=== PATIENT | male | born 1995 | race Caucasian/White ===

== ENCOUNTER 2023-05-02 18:19 | Emergency (ER) | payer BC, SELFPAY ==
[2023-05-02 18:31] VITALS: BP 191/100
[2023-05-02] MEDS: TYLENOL 1000 MG PO (18:43)
[2023-05-02 18:50] LABS: COVID-19 Antigen Positive (Negative)
--- NOTE | 2023-05-02 21:15 | ED.GENMED ---
History of Present Illness
General
Chief Complaint: Cold/Flu/URI Symptoms
Source: patient
Exam Limitations: none
Time Seen by Provider: 05/02/23 21:08
Travel History
Have you had any contact with someone who has COVID-19?: No
Do you have any symptoms of coronavirus? Fever > 100 degrees, chills, cough, shortness of breath, sore throat, loss of taste or smell, muscle aches, or headache?: Yes
Symptoms:: fever, sore throat.
History of Present Illness
History of Present Illness:
27-year-old male presents with 2 days worth of fatigue cough headache fever sore throat. No known sick contacts. Is healthy otherwise. No other complaints at this
Phy Exam
Physical Exam
Physical Exam:
General: Well-appearing nontoxic male no acute respiratory distress
HEENT: Normocephalic atraumatic neck is supple
Heart: Regular rate and rhythm no murmurs
Lungs: Clear to auscultation bilaterally no wheezing
Extremities: No cyanosis
Course
Orders/Labs/Results
Orders:
Orders
05/02/23 18:39
Acetaminophen [Tylenol] 1,000 mg .ROUTE .STK-MED ONE
05/02/23 18:40
COVID-19 Antigen Urgent
Source: Nasal Swab
INF RAPID [Influenza A+B Rapid Molecular] Urgent
PIOTR Source: Nasal Swab
Specimen Description:
05/02/23 18:43
Acetaminophen [Tylenol] 1,000 mg PO NOW STA
Abnormal Lab Results
05/02/23
18:40
SARS-CoV-2 Antigen Positive A
(Negative)
Vital Signs
Initial and Last Documented VS:
Initial Vital Signs
Temp Pulse Resp BP Pulse Ox
103.2 F H 119 20 191/100 100
05/02/23 18:31 05/02/23 18:31 05/02/23 18:31 05/02/23 18:31 05/02/23 18:31
Last Documented Vital Signs
Temp Pulse Resp BP Pulse Ox
103.2 F H 119 20 191/100 100
05/02/23 18:31 05/02/23 18:31 05/02/23 18:31 05/02/23 18:31 05/02/23 18:31
MDM/Problems Addressed
Differential Diagnosis Includes:
Fever fatigue myalgias cough. Consider viral illness such as COVID or flu. Lungs are clear. Was febrile initially was given Tylenol is now feeling much better
He tested positive for COVID-negative for flu. Recommended supportive care with hydration and fever control at home. Stable for discharge. Considered Paxlovid and discussed this with patient however will hold off on this for now
*Critical Care Note
Total Time (30-74mins, 75-104mins- exclusive of procedures): Not Applicable
ED Attending Note
-
Portions of this chart may have been created with voice recognition software.� Occasional wrong word or��sound alike� substitutions may have occurred due to the inherent limitations of voice recognition software.
Discharge Plan
Departure
Patient Disposition: Home (Routine Discharge)
Date of Disposition: 05/02/23
Time of Disposition: 21:16
Patient with high blood pressure during this ER visit?: No
Discharge Problem:
COVID-19
Instructions: Coronavirus Home Quarantine
Activity Restrictions/Additional Instructions:
Rest. Drink plenty of fluids. Use ibuprofen or Tylenol for fever. Return here for worsening symptoms otherwise
[2023-05-02 21:43] VITALS: BP 157/95
== END 2023-05-02 21:44 | disposition home or self-care (01) ==
LOC: EMR 18:19
PROVIDERS: EMERGENCY PHYSICIAN Student in an Organized Health Care Education/Training Program
DX: U07.1 COVID-19 (principal)
CPT/HCPCS: 99283; 87502; 87811

== ENCOUNTER 2024-02-06 16:07 | Emergency (ER) | payer BC, SELFPAY ==
[2024-02-06 16:12] VITALS: BP 133/85
--- NOTE | 2024-02-06 16:41 | ED.GENMED ---
History of Present Illness
General
Chief Complaint: Chest Pain
Source: patient
Time Seen by Provider: 02/06/24 16:29
History of Present Illness
History of Present Illness:
28yoM with a history of obesity and anxiety presenting for evaluation of multiple complaints. He reports dizziness, nausea, diarrhea, and dry mouth starting yesterday. He was at work sitting at his desk about 4 hours ago when he started to
experience central chest discomfort. His pain has been constant for the past several hours. He has had similar pains in the past with anxiety attacks but he does not typically have dizziness or nausea. He also feels very shaky. He was started on
Celexa yesterday morning and he believes he may be having a medication side effect. He was on Celexa 2 years ago without issue. His dose of Ozempic was also increased 3 days ago.
Phy Exam
General Physical Exam
General Presentation: well appearing and no apparent distress
General age: appears stated age
General Skin: warm and dry
General Habitus: normal
General Mental: alert
General Hydration: appears well hydrated
ENT Exam
ENT Exam: normocephalic
Cardiovascular Exam
Cardiovascular Exam: regular rate/rhythm and no murmur
Pulmonary Exam
Pulmonary Exam: lungs clear, no respiratory distress, no rales, no crackles, no rhonchi and no wheezing
Gastrointestinal Exam
Gastrointestinal Exam: non tender, soft and non distended
[place] Coma Scale
Eye Opening: Spontaneous
Verbal Response: Oriented
Motor Response: Obeys Commands
GCS Total Score: 15
Skin Exam
Skin Exam: normal color and warm/dry
Psychiatric Exam
Psychiatric Exam: normal mood/affect
Scores
Heart Score for Chest Pain Patients
STEMI patient?: No
History: Slightly or Non-Suspicious
ECG: Normal
Age: </= 45 years
Risk Factors: 1 or 2 Risk Factors
Troponin: </= Normal Limit
Heart Score for Chest Pain Patients: 1
Heart Score Risk: 2.5% MACE over next 6 weeks
Course
Orders/Labs/Results
Orders:
Orders
02/06/24 16:08
ECG [Electrocardiogram (*1)] Urgent
Reason for Study: Chest Pain
Other Reason for Exam: Dizzy
02/06/24 16:09
EKG- Treatment ONCE
02/06/24 16:16
Electrocardiogram (*1) Urgent
Reason for Study: Chest Pain
EKG- Treatment ONCE
02/06/24 16:40
Ondansetron Injectable [Zofran] 4 mg IV NOW STA
CR Chest - 2 Views Urgent
Comment:
Reason For Exam: CP
02/06/24 17:06
COVID-19 Antigen Urgent
Source: Nasal Swab
Complete Blood Count/With Diff Urgent
Comprehensive Metabolic Panel Urgent
Magnesium Urgent
TSH Reflex To Free T4 Urgent
Troponin I Urgent
Influenza A+B Rapid Molecular Urgent
PIOTR Source: Nasal Swab
Specimen Description:
Abnormal Lab Results
02/06/24
17:06
WBC 11.5 H 10^3/uL
(4.8-10.8)
MPV 10.5 H fL
(7.4-10.4)
Absolute Neuts (auto) 9.2 H 10^3/uL
(1.4-6.5)
Absolute Monos (auto) 0.7 H 10^3/uL
(0.1-0.6)
Neutrophils % 80.3 H %
(42.2-75.2)
Lymphocytes % 13.0 L %
(20.5-51.1)
Glucose 108 H mg/dl
(70-99)
ALT 117 H U/L
(0-50)
02/06/24 17:06
02/06/24 17:06
Vital Signs
Initial and Last Documented VS:
Initial Vital Signs
Temp Pulse Resp BP Pulse Ox
98 F 92 18 133/85 96
02/06/24 16:12 02/06/24 16:12 02/06/24 16:12 02/06/24 16:12 02/06/24 16:12
Last Documented Vital Signs
Temp Pulse Resp BP Pulse Ox
98 F 74 15 149/87 98
02/06/24 16:12 02/06/24 18:31 02/06/24 18:31 02/06/24 18:31 02/06/24 18:31
MDM/Problems Addressed
Differential Diagnosis Includes:
28yoM here with multiple complaints including chest pain, dizziness, dry mouth, n/v/d. Chest pain started 4 hours ago but remainder of symptoms started yesterday. Started on Celexa yesterday and patient believes he is having a medication reaction.
Vital signs are stable. He is well-appearing in no acute distress. Exam is reassuring. Differential diagnosis includes but is not limited to: Medication side effect, anxiety, dehydration, electrolyte abnormality, less likely ACS
Initial ED plan: Check cardiac labs, TSH, magnesium, COVID/flu swab, EKG and chest x-ray. IV Zofran for symptoms.
*EKG
Interpreted by ED Provider?: Yes
EKG Intrepretation Date: 02/06/24
Heart Rate: 82
Rate: normal
Rhythm: sinus
[place]: normal axis
Interval: normal interval
QRS Pattern: normal QRS
Ischemia: no ischemia
*Critical Care Note
Total Time (30-74mins, 75-104mins- exclusive of procedures): Not Applicable
Update Note
Update Note:
Labs reveal a mild leukocytosis with a white count of 11.5. This is nonspecific and may be reactive secondary to vomiting. Remainder of the labs overall unremarkable. EKG shows normal sinus rhythm without ischemic changes or ectopy. Troponin
within normal limits. Chest x-ray clear. Patient is feeling improved on reassessment. He is stable for discharge. He was encouraged to follow-up with his PCP on Thursday to discuss his new medication. Patient states he was previously on 5 mg of
Celexa several years ago but was started on 20 mg yesterday. ED return precautions discussed. He expressed understanding and is agreeable to plan. He was discharged in stable condition peer
ED Attending Note
-
Portions of this chart may have been created with voice recognition software.� Occasional wrong word or��sound alike� substitutions may have occurred due to the inherent limitations of voice recognition software.
Discharge Plan
Departure
Patient Disposition: Home (Routine Discharge)
Date of Disposition: 02/06/24
Time of Disposition: 18:38
Patient with high blood pressure during this ER visit?: Yes
Discharge Problem:
Chest pain, Nausea, vomiting, and diarrhea
Instructions: Chest Pain PCP Follow Up
Referrals:
UNKNOWN - PT DOES,NOT KNOW [Family Provider] -
Activity Restrictions/Additional Instructions:
Please call your family doctor on Thursday to schedule a follow-up appointment and discuss your new Celexa prescription..
Return to the ER with any new or worsening symptoms.
Interventions
Interventions:
*Risk Screen - Suicide Last Done: 02/06/24 16:15
*General Assessment Last Done: 02/06/24 16:15
*Neglect/Abuse Screening Last Done: 02/06/24 16:15
*ED COVID-19 Vaccine History Last Done: 02/06/24 18:50
*Nursing Disposition Last Done: 02/06/24 18:50
Discharge Date and Time
Discharge Date/Time: 02/06/24 18:50
Print Language: NEPALI
[2024-02-06] MEDS: ZOFRAN 4 MG IV (17:08)
[2024-02-06 17:14] LABS: % Basophils 0.3 % (0-2); % Eosinophils 0.3 % (0-6); % Immature Granulocytes 0.3 % (0-0.5); % Monocytes 5.8 % (1.7-9.3); % Neutrophils 80.3 % (42.2-75.2); Absolute Lymphocytes 1.5 10^3/uL (1.2-3.4); Absolute Monocytes 0.7 10^3/uL (0.1-0.6); Absolute Neutrophils 9.2 10^3/uL (1.4-6.5); Hemoglobin 16.1 g/dL (13.0-18.0); Mean Corp Hgb Conc. 34.3 g/dL (33.0-37.0); Mean Corpuscular Hgb 28.1 pg (27.0-31.0); Mean Platelet Volume 10.5 fL (7.4-10.4); Nucleated Red Blood Cells % 0 % (-); Platelet Count 385 10^3/uL (130-400); Red Blood Cell Count 5.73 10^6/uL (4.70-6.10); Red Cell Dist. Width 12.9 % (11.5-14.5); White Blood Cell Count 11.5 10^3/uL (4.8-10.8)
[2024-02-06 17:29] LABS: COVID-19 Antigen Negative (Negative)
[2024-02-06 17:30] LABS: ALT (SGPT) 117 U/L (0-50); AST (SGOT) 56 U/L (17-59); Albumin 4.7 g/dl (3.5-5.0); Alkaline Phosphatase 100 U/L (38-126); Blood Urea Nitrogen 14 mg/dl (9-20); Calcium 9.8 mg/dl (8.4-10.2); Carbon Dioxide 27 mmol/L (22-30); Chloride 99 mmol/L (98-107); Glucose 108 mg/dl (70-99); Potassium 4.1 mmol/L (3.5-5.1); Sodium 139 mmol/L (135-145); Total Bilirubin 0.7 mg/dl (0.2-1.3); eGFR > 60.00
[2024-02-06 17:43] LABS: Troponin I < 0.012 ng/ml
[2024-02-06 18:04] LABS: TSH Reflex To Free T4 2.86 uIU/ml (0.47-4.68)
[2024-02-06 18:31] VITALS: BP 149/87
== END 2024-02-06 18:50 | disposition home or self-care (01) ==
LOC: EMR 16:07
PROVIDERS: Physician Assistant; EMERGENCY PHYSICIAN Student in an Organized Health Care Education/Training Program
DX: R07.89 Other chest pain (principal); R11.2 Nausea with vomiting, unspecified; R19.7 Diarrhea, unspecified; R42 Dizziness and giddiness; R68.2 Dry mouth, unspecified; Z11.52 Encounter for screening for COVID-19; R03.0 Elevated blood-pressure reading, without diagnosis of hypertension; E66.9 Obesity, unspecified; F41.9 Anxiety disorder, unspecified; Z91.018 Allergy to other foods
CPT/HCPCS: 99284; 96374; 71046; 80053; 83735; 84443; 84484; 85025; 87502; 87811; 93005

== ENCOUNTER 2024-11-26 16:19 | Emergency (ER) | payer BC, SELFPAY ==
[2024-11-26 16:20] VITALS: BP 164/103
[2024-11-26 16:42] LABS: Hematocrit 47.4 % (39.0-52.0); Hemoglobin 16.3 g/dL (13.0-18.0); Mean Corp Hgb Conc. 34.4 g/dL (33.0-37.0); Mean Corpuscular Volume 82.1 fL (80.0-94.0); Nucleated Red Blood Cells % 0 % (-); Platelet Count 346 10^3/uL (130-400); Red Cell Dist. Width 12.3 % (11.5-14.5)
[2024-11-26 17:04] LABS: Troponin I < 0.012 ng/ml
[2024-11-26 17:05] LABS: ALT (SGPT) 51 U/L (0-50); AST (SGOT) 31 U/L (17-59); Albumin 4.7 g/dl (3.5-5.0); Alkaline Phosphatase 94 U/L (38-126); Blood Urea Nitrogen 16 mg/dl (9-20); Calcium 9.9 mg/dl (8.4-10.2); Carbon Dioxide 31 mmol/L (22-30); Chloride 101 mmol/L (98-107); Glucose 105 mg/dl (70-99); Potassium 4.0 mmol/L (3.5-5.1); Sodium 139 mmol/L (135-145); Total Protein 8.3 g/dl (6.3-8.2); eGFR > 60.00
--- NOTE | 2024-11-26 19:38 | ED.GENMED ---
History of Present Illness
General
Chief Complaint: Chest Pain
Source: patient
Exam Limitations: none
Time Seen by Provider: 11/26/24 19:23
Nursing documentation reviewed up to this point in time: agreed with
History of Present Illness
History of Present Illness:
Patient is a 29-year-old male with past medical history of hepatitis C, history of IVDA(sober for 5 years), anxiety presents to the ER for evaluation. Patient started with nausea and abdominal discomfort on Thursday 5 days ago over the past 2 days
has had diarrhea. He does complain of lower abdominal pain. He has nauseous now. He Has not had an appetite. He also complains of some discomfort when he urinates in the suprapubic region. no back pain. No fevers, no other sick contacts.
Patient reports intermittent chest pain over the past several days as well no associated shortness of breath. No cough fever chills.
Phy Exam
General Physical Exam
General Presentation: no apparent distress
General age: appears stated age
General Skin: warm
General Habitus: normal
General Mental: alert
General Hydration: appears well hydrated
Cardiovascular Exam
Cardiovascular Exam: regular rate/rhythm, no murmur and normal peripheral pulses
Pulmonary Exam
Pulmonary Exam: lungs clear and no respiratory distress
Gastrointestinal Exam
Gastrointestinal Exam: soft and other (mild lower abd tenderness )
Neurological Exam
Neurological Exam: alert and oriented x3
Musculoskeletal Exam
Musculoskeletal Exam: full ROM
Skin Exam
Skin Exam: normal color and warm/dry
Psychiatric Exam
Psychiatric Exam: normal mood/affect
Scores
Heart Score for Chest Pain Patients
STEMI patient?: Not applicable
Course
Orders/Labs/Results
Orders:
Orders
11/26/24 16:24
Electrocardiogram (*1) Urgent
Reason for Study: Chest Pain
EKG- Treatment ONCE
11/26/24 16:31
Complete Blood Count/With Diff Urgent
Comprehensive Metabolic Panel Urgent
Troponin I Urgent
11/26/24 19:39
0.9% Sodium Chloride 1000 ml [Nss] 1,000 ml IV BOLUS
Ketorolac [Toradol] 15 mg IV NOW STA
11/26/24 19:48
UA Reflex to Culture [Urinalysis Reflex To Culture] Urgent
Date Specimen was Collected: 11/26/24
Time Specimen was Collected: 19:47
Urine Microscopic Reflex Cult Urgent
11/26/24 20:25
CT Abd/pelvis W Iv Cont Urgent
Comment:
Reason For Exam: lower abd pain
Abnormal Lab Results
11/26/24 11/26/24
16:31 19:48
WBC 11.8 H 10^3/uL
(4.8-10.8)
Absolute Neuts (auto) 8.9 H 10^3/uL
(1.4-6.5)
Absolute Monos (auto) 0.7 H 10^3/uL
(0.1-0.6)
Neutrophils % 75.4 H %
(42.2-75.2)
Lymphocytes % 17.5 L %
(20.5-51.1)
Carbon Dioxide 31 H mmol/L
(22-30)
Glucose 105 H mg/dl
(70-99)
ALT 51 H U/L
(0-50)
Total Protein 8.3 H g/dl
(6.3-8.2)
Ur Occult Blood Reflex 1+ A
(Negative)
Urine Albumin (Reflex) 1+ A
(Neg - Trace)
11/26/24 16:31
11/26/24 16:31
Vital Signs
Initial and Last Documented VS:
Initial Vital Signs
Temp Pulse Resp BP Pulse Ox
98.3 F 115 18 164/103 99
11/26/24 16:20 11/26/24 16:20 11/26/24 16:20 11/26/24 16:20 11/26/24 16:20
Last Documented Vital Signs
Temp Pulse Resp BP Pulse Ox
98.3 F 91 28 141/93 99
11/26/24 16:20 11/26/24 22:48 11/26/24 22:48 11/26/24 22:00 11/26/24 22:48
MDM/Problems Addressed
Differential Diagnosis Includes:
Not limited to appendicitis bowel obstruction diverticulitis gastroenteritis, colitis
MDM/Problems Addressed:
Symptoms are likely gastroenteritis. CAT scan negative for acute findings patient started with nausea for the past several days and outside diarrhea. He is in no acute distress urinalysis negative white count mildly elevated however negative CAT
scan likely reactive, viral syndrome will DC home with supportive care
*Radiology
Radiology exam reviewed: radiology read reviewed (Negative CAT scan no bowel obstruction)
*Pulse Oximetry
SaO2: 99
Oxygen Mode of Delivery: Room air
Patient hypoxic: no
*Critical Care Note
Total Time (30-74mins, 75-104mins- exclusive of procedures): Not Applicable
ED Attending Note
-
Portions of this chart may have been created with voice recognition software.� Occasional wrong word or��sound alike� substitutions may have occurred due to the inherent limitations of voice recognition software.
Discharge Plan
Departure
Patient Disposition: Home (Routine Discharge)
Date of Disposition: 11/26/24
Time of Disposition: 23:28
Patient with high blood pressure during this ER visit?: Yes
Condition: Fair
Covid-19: Not Applicable
Discharge Problem:
Gastroenteritis
Instructions: Viral gastroenteritis in adults, BLOOD PRESSURE
Referrals:
Shellie Hilton CRNP [Family Provider, General]
Activity Restrictions/Additional Instructions:
As discussed your CAT scan was negative for acute findings. This is likely viral syndrome,
[place] solid foods as tolerated. Follow-up with a family doctor in the next several days. return if any worsening of symptoms
Interventions
Interventions:
*Risk Screen - Suicide Last Done: 11/26/24 16:20
*General Assessment Last Done: 11/26/24 16:20
*Neglect/Abuse Screening Last Done: 11/26/24 16:20
Discharge Date and Time
Print Language: SWISS
[2024-11-26 19:47] VITALS: BP 131/81
[2024-11-26] MEDS: NSS 1000 IV (20:02)
[2024-11-26] MEDS: TORADOL 15 MG IV (20:02)
[2024-11-26 20:13] LABS: Urine Character Clear (Clear)
[2024-11-26 20:22] LABS: Urine Squamous Cell 0-2 /LPF (Few)
[2024-11-26 20:23] LABS: Urine Red Blood Cell 0-2 /HPF (0-2); Urine White Cell 0-2 /HPF (0-5)
[2024-11-26 21:25] VITALS: BP 147/80
[2024-11-26 22:00] VITALS: BP 141/93
== END 2024-11-26 23:58 | disposition home or self-care (01) ==
LOC: EMR 16:19
PROVIDERS: Nurse Practitioner; EMERGENCY PHYSICIAN Emergency Medicine; FAMILY PHYSICIAN Nurse Practitioner Adult Health
DX: K52.9 Noninfective gastroenteritis and colitis, unspecified (principal); Z86.19 Personal history of other infectious and parasitic diseases; F41.9 Anxiety disorder, unspecified
CPT/HCPCS: 99284; 96374; 96361; 74177; 80053; 81003; 81015; 84484; 85025; 93005; Q9967

== ENCOUNTER 2025-02-12 19:14 | Emergency (ER) | payer BC, SELFPAY ==
[2025-02-12 19:15] VITALS: BP 171/99
[2025-02-12 19:37] LABS: Hematocrit 50.3 % (39.0-52.0); Hemoglobin 17.1 g/dL (13.0-18.0); Mean Corp Hgb Conc. 34.0 g/dL (33.0-37.0); Mean Corpuscular Volume 83.7 fL (80.0-94.0); Nucleated Red Blood Cells % 0 % (-); Platelet Count 365 10^3/uL (130-400); Red Cell Dist. Width 12.4 % (11.5-14.5)
[2025-02-12 20:00] LABS: ALT (SGPT) 41 U/L (0-50); AST (SGOT) 28 U/L (17-59); Albumin 4.7 g/dl (3.5-5.0); Alkaline Phosphatase 94 U/L (38-126); Blood Urea Nitrogen 14 mg/dl (9-20); Calcium 9.7 mg/dl (8.4-10.2); Carbon Dioxide 29 mmol/L (22-30); Chloride 99 mmol/L (98-107); Glucose 91 mg/dl (70-99); Potassium 4.5 mmol/L (3.5-5.1); Sodium 138 mmol/L (135-145); Total Protein 8.2 g/dl (6.3-8.2); eGFR > 60.00
[2025-02-12 20:12] LABS: Troponin I < 0.012 ng/ml
[2025-02-12 21:37] VITALS: BP 143/96
[2025-02-12 22:42] VITALS: BP 129/81
[2025-02-13 00:02] LABS: Urine Character Clear (Clear)
--- NOTE | 2025-02-13 01:07 | ED.GENMED ---
History of Present Illness
General
Chief Complaint: Chest Pain
Source: patient
Time Seen by Provider: 02/12/25 21:41
History of Present Illness
History of Present Illness:
Note:
CHIEF COMPLAINT(S)
Lower abdominal pain and chest pain.
HISTORY OF PRESENT ILLNESS
The patient is a 29-year-old male who presented with complaints of lower abdominal pain and chest pain. He reports that the pain has been occurring on and off for approximately three months. The abdominal pain subsided for about two weeks but
recurred last night, becoming more pronounced today. The patient experiences relief in abdominal discomfort only when lying on his back with legs flexed, indicating a possible positional relief factor. He finds it difficult to eat, stating he had
breakfast but has not consumed any food since morning due to discomfort. Drinking water also does not alleviate the symptoms. He reports a tendency toward constipation but no diarrhea, blood in stools, or urine. The abdominal pain does not notably
change post-bowel movement. He gets shaky with a dry mouth at times. The pain is primarily below the belly button, with some tenderness in the adjacent abdominal areas. He has not noted any aggravating factors other than possible anxiety.
The patient has tried nkly-urg-obhoven medications like Tylenol and Gas-X, but they have not provided significant relief. A computed tomography (CT) scan was proposed to further evaluate the abdominal pain. If the CT scan does not yield results, the
next step would involve a consultation with a Sewing Machine Operator for potential colonoscopy, which the patient has never undergone.
PAST MEDICAL AND SURGICAL HISTORY
The patient mentions past issues with chronic constipation dating back to his school years.
SOCIAL HISTORY
The patient states he does not smoke but uses vaping products. 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
MEDICATIONS
The patient mentions he has not tried any new medications recently aside from Tylenol and Gas-X for symptom relief.
REVIEW OF SYSTEMS
- Gastrointestinal: Lower abdominal pain, positional relief, decreased appetite, constipation, no blood in stools or urine.
- Neurological: Reports shaking and dry mouth occasionally.
PHYSICAL EXAM
General: Alert, in no acute distress.
Skin: Warm, dry.
Head: Normocephalic, atraumatic.
Neck: Supple, trachea midline.
Eye Ears, nose, mouth and throat: Oral mucosa moist.
Cardiovascular: Normal peripheral perfusion, No edema.
Respiratory: Respirations are non-labored.
Gastrointestinal: Tenderness below the belly button with slight pain in adjacent areas, abdomen nondistended.
Back: Normal range of motion, Normal alignment.
Musculoskeletal: Normal ROM, normal strength.
Neurological: Alert and oriented to person, place, time, and situation, No focal neurological deficit observed.
Psychiatric: Cooperative, appropriate mood & affect.
PLAN
- Order a CT scan to assess the abdominal pain.
- Consider Gastroenterology consultation and potential colonoscopy if CT scan results are inconclusive.
- Obtain a urine sample for further analysis.
DIFFERENTIAL DIAGNOSIS
The Differential Diagnosis includes, in no particular order and is not limited to:
1. Irritable bowel syndrome
2. Gastroenteritis
3. Peptic ulcer disease
4. Constipation-related abdominal pain
5. Gastroesophageal reflux disease
6. Pancreatitis
7. Intestinal obstruction
8. Urinary tract infection
9. Anxiety-related abdominal manifestations
10. Colonic neoplasm
Disposition:
SUMMARY OF ENCOUNTER
The patient, a 29-year-old male, presented to the emergency department with a three-month history of recurrent abdominal pain. He was evaluated using a CT scan of the abdomen and pelvis, which revealed no acute abnormalities. Laboratory tests showed
normal chemistries and a slightly elevated white blood cell count. The patient was administered a dose of dicyclomine (Bentyl) for symptom relief.
PLAN
The patient should follow up with a Sewing Machine Operator for further evaluation regarding his chronic abdominal pain.
INDEPENDENT REVIEW OF LABS AND INTERPRETATION OF TESTS
- My independent review of chemistry labs is normal.
- My independent review of hematology reports a slightly elevated white blood cell count.
INDEPENDENT REVIEW OF RADIOLOGY TESTS
- My independent interpretation of the CT scan of the abdomen and pelvis reveals no acute abnormalities.
MEDICATION RECONCILIATION
- Administered: Dicyclomine (Bentyl) was given for abdominal pain relief.
MEDICAL DECISION MAKING
- Number and Complexity of Problems Addressed: Chronic conditions affecting care such as chronic constipation. Differential diagnoses considered: Irritable bowel syndrome, gastroenteritis, peptic ulcer disease, constipation-related abdominal pain,
gastroesophageal reflux disease, pancreatitis, intestinal obstruction, urinary tract infection, anxiety-related abdominal manifestations, colonic neoplasm.
- Data:
- Category 1: The CT scan of the abdomen and pelvis was ordered and independently interpreted by me. Chemistry and hematology labs were reviewed.
- Risk: Consideration of Admission/Observation: Escalation of care including admission/observation was considered given the complexity and risk of the patients presenting complaint, exam findings, and/or their underlying comorbidities. However,
ultimately I feel the patient is safe for outpatient management with close follow-up. Reasoning: Work-up is reassuring, does not reveal any acute life/organ-threatening processes, patients symptoms are well controlled upon reevaluation,
reexamination is reassuring, vitals are stable, patient agreeable with discharge, reliable for follow-up.
DIAGNOSIS
Chronic abdominal pain (R10.84).
Phy Exam
Physical Exam
Physical Exam:
.
Scores
Heart Score for Chest Pain Patients
STEMI patient?: Not applicable
Course
Orders/Labs/Results
Orders:
Orders
02/12/25 19:15
Electrocardiogram (*1) Urgent
Reason for Study: Other
Other Reason for Exam: Respiratory Distress
Cardiac Monitoring- Treatment ONCE
EKG- Treatment ONCE
IV Insert/Care/Rem.- Treatment PRN
CR Chest - 2 Views Urgent
Comment:
Reason For Exam: respiratory distress
O2 Therapy [RESP] Urgent
Titrate/Wean O2 to maintain O2 sat greater than (%): 93
Special Instructions: TO MAINTAIN CONTINUOUS O2 SATS >/= 93%
Pulse Ox/cont/shift [RESP] Urgent
Quantity: 1
Special Instructions: continuous pulse ox
02/12/25 19:30
Complete Blood Count/With Diff Urgent
Comprehensive Metabolic Panel Urgent
NT-proBNP Urgent
Troponin I Urgent
02/12/25 23:33
Urinalysis Reflex To Culture Urgent
Date Specimen was Collected: 02/12/25
Time Specimen was Collected: 23:10
02/13/25 00:00
CT Abd/pelvis W Iv Cont Urgent
Reason For Exam: lower abd pain
02/13/25 01:08
Dicyclomine [Bentyl] 20 mg PO NOW STA
Abnormal Lab Results
02/12/25 02/12/25
19:30 23:33
WBC 11.9 H 10^3/uL
(4.8-10.8)
Absolute Neuts (auto) 8.2 H 10^3/uL
(1.4-6.5)
Absolute Monos (auto) 0.9 H 10^3/uL
(0.1-0.6)
Urine Ketones 1+ A
(Negative)
02/12/25 19:30
02/12/25 19:30
Vital Signs
Initial and Last Documented VS:
Initial Vital Signs
Temp Pulse Resp BP Pulse Ox
98.0 F 95 18 171/99 98
02/12/25 19:15 02/12/25 19:15 02/12/25 19:15 02/12/25 19:15 02/12/25 19:15
Last Documented Vital Signs
Temp Pulse Resp BP Pulse Ox
98.0 F 88 18 130/81 97
02/12/25 19:15 02/12/25 22:45 02/12/25 19:15 02/13/25 01:20 02/13/25 01:20
*Radiology
Radiology exam reviewed: radiology read reviewed
*Pulse Oximetry
SaO2: 100
Patient hypoxic: no
*EKG
Interpreted by ED Provider?: Yes
Interpretation: normal
Comparison EKG: no changes
Heart Rate: 93
Rate: normal
Rhythm: sinus
[place]: normal axis
Interval: normal interval
QRS Pattern: normal QRS
Ischemia: no ischemia
*Critical Care Note
Total Time (30-74mins, 75-104mins- exclusive of procedures): Not Applicable
Update Note
Update Note:
NAME: MONA BHATIA
DATE OF EXAM: 02/13/2025
Patient No: [id number]
Physician: JUSTIN
Date of : 1995
Past Medical History (entered by Technologist):
Reason For Exam (entered by Technologist):
Other Notes (entered by Technologist): Pt here for abdominal pain, nausea, and indgestion, also adds his side and back hurt too. No recent illness
Prior sent
Additional Information (per [facility]):
CT ABDOMEN/PELVIS WITH CONTRAST
IMPRESSION:
1. No acute abnormality within the abdomen or pelvis.
2. No bowel obstruction. Normal gallbladder and appendix
Incidentals:
- No obstructive uropathy.
- No hepatic or pancreatic mass.
- No abdominal aortic aneurysm.
- No acute osseous abnormality.
- No acute abnormality within the visualized lungs.
- No acute abnormality within the visualized soft tissues.
Case finalized on 02/13/25 00:40 EST
Hossein Sharp M.D.
ED Attending Note
-
Portions of this chart may have been created with voice recognition software.� Occasional wrong word or��sound alike� substitutions may have occurred due to the inherent limitations of voice recognition software.
Discharge Plan
Departure
Patient Disposition: Home (Routine Discharge)
Date of Disposition: 02/13/25
Time of Disposition: 01:23
Patient with high blood pressure during this ER visit?: Yes
Discharge Problem:
Abdominal pain
Instructions: Abdominal pain in adults (DC), BLOOD PRESSURE
Prescriptions:
New
dicyclomine 10 mg capsule
10 mg PO BID Qty: 10 0RF
Referrals:
Delgado Majano MD [Active, Gastroenterology] - Call in 1-3 days for appt
Shellie Hilton CRNP [Family Provider, General]
Activity Restrictions/Additional Instructions:
Your prescriptions were sent electronically to the pharmacy that you specified.
Thank You for choosing [facility].
It was a pleasure meeting you and taking part in your care. We hope for your continued healing and wellness.
Please read discharge instructions in their entirety. However, they are for general education and may not describe your exact diagnosis at discharge. Information on your ER visit and medical conditions were discussed with you along with appropriate
follow up information...
If indicated, please take your medications as instructed and indicated on discharge paperwork.
Please schedule a follow up appointment as directed. Call to schedule an appointment
Please return to the emergency department with ANY change in, persisting, or worsening of symptoms. If any of your symptoms do not improve, or persist, or become more severe within 6-12 hours, please return to the emergency department for further
care.
Please return to the emergency department if you develop a headache, neck pain/stiffness, fever greater than 100.4F, chest pain, shortness of breath, persistent nausea, vomiting, slurred speech, difficulty walking, numbness/tingling, weakness, signs
of infection or any other symptoms that are worrisome to you.
If you have any questions or concerns please do not hesitate to call the Hospital at .
Interventions
Interventions:
*Risk Screen - Suicide Last Done: 02/12/25 19:16
*General Assessment Last Done: 02/12/25 19:16
*Neglect/Abuse Screening Last Done: 02/12/25 19:16
*ED COVID-19 Vaccine History Last Done: 02/12/25 19:16
*ED Influenza Vaccine History Last Done: 02/12/25 19:16
ED- Cardiac Assessment Last Done: 02/12/25 21:40
Discharge Date and Time
Print Language: WOLOF
[2025-02-13] MEDS: BENTYL 20 MG PO (01:17)
[2025-02-13 01:20] VITALS: BP 130/81
== END 2025-02-13 01:37 | disposition home or self-care (01) ==
LOC: EMR 19:14
PROVIDERS: Emergency Medicine; EMERGENCY PHYSICIAN Student in an Organized Health Care Education/Training Program; FAMILY PHYSICIAN Nurse Practitioner Adult Health
DX: R10.30 Lower abdominal pain, unspecified (principal); G89.29 Other chronic pain; R03.0 Elevated blood-pressure reading, without diagnosis of hypertension; F17.290 Nicotine dependence, other tobacco product, uncomplicated
CPT/HCPCS: 99284; 71046; 74177; 80053; 81003; 83880; 84484; 85025; 93005; Q9967

== ENCOUNTER 2025-02-15 06:18 | Day surgery (SDC) | payer BC, SELFPAY | END 2025-02-15 15:25 | disposition home or self-care (01) | LOC: GI 06:18 | PROVIDERS: ATTENDING PHYSICIAN Internal Medicine | DX: R10.84 Generalized abdominal pain (principal); R93.3 Abnormal findings on diagnostic imaging of other parts of digestive tract; R12 Heartburn; K44.9 Diaphragmatic hernia without obstruction or gangrene; K63.89 Other specified diseases of intestine; K29.70 Gastritis, unspecified, without bleeding; D12.4 Benign neoplasm of descending colon; K62.1 Rectal polyp; K29.50 Unspecified chronic gastritis without bleeding; K20.80 Other esophagitis without bleeding | CPT/HCPCS: 45385; 45380; 43239; 88305; 88342 ==